=== PATIENT | male | born 1950 | race Caucasian/White ===

== ENCOUNTER 2016-08-19 08:51 | Emergency (ER) | payer MEDICARE, OTHER ==
--- NOTE | 2016-08-19 09:02 | EDM.PDOC ---
ED HPI GENERAL MEDICAL PROBLEM - General Chief Complaint: Abdominal Pain Stated Complaint: SOB STOMACH DISENDED Time Seen by Provider: 08/19/16 09:02 - History of Present Illness INITIAL COMMENTS - FREE TEXT/NARRATIVE: 66-year-old male presents emergency room with abdominal pain. This pain started last evening around 7:30 or 8:00 was associated with some distention nausea and vomiting. The patient has had some improvement in his distention But his discomfort is getting worse it does radiate a little bit into his chest. The patient ate a bunch of deer sausage last evening his symptoms started after this. However, the patient has had this deer sausage in the past without problems. Patient has not had any fevers or chills and prior to the onset of his abdominal symptoms was doing well. His pain does not going to his back. He has no prior history of coronary artery disease. However, he does have a history of hyperlipidemia. Abdomen Pain Score (Numeric/FACES): 10 - Related Data Allergies Allergy/AdvReac Type Severity Reaction Status Date / Time No Known Allergies Allergy Verified 08/19/16 09:03 Home Meds: Home Meds Allopurinol [Zyloprim] 300 mg PO BEDTIME 08/19/16 [History] Aspirin [Halfprin] 81 mg PO BEDTIME 08/19/16 [History] Citalopram Hydrobromide [Celexa] 20 mg PO BEDTIME 08/19/16 [History] Ondansetron [Zofran ODT] 4 mg PO Q4H PRN #10 tab.dis 08/19/16 [Rx] Simvastatin [Zocor] 40 mg PO BEDTIME 08/19/16 [History] ED ROS GENERAL - Review of Systems Review Of Systems: See Below Constitutional: Reports: no symptoms HEENT: Reports: No symptoms Respiratory: Reports: No Symptoms Cardiovascular: Reports: Chest pain (Minimal and this seems to worsen as his distention worsens) GI/Abdominal: Reports: Abdominal pain, Anorexia, Distension, Nausea, Vomiting. Denies: Constipation, Diarrhea : Reports: no symptoms Musculoskeletal: Reports: no symptoms Skin: Reports: no symptoms Neurological: Reports: No Symptoms ED EXAM, GENERAL - Physical Exam Exam: See Below Exam Limited By: No limitations General Appearance: alert, mild distress (From abdominal pain after his symptoms resolved he did much better.) Head: atraumatic, normocephalic Neck: normal inspection, supple, non-tender, full range of motion. No: lymphadenopathy (L), lymphadenopathy (R) Respiratory/Chest: lungs clear, normal breath sounds, no accessory muscle use Cardiovascular: regular rate, rhythm, no edema, no murmur GI/Abdominal: normal bowel sounds, other (Diffuse distention generalized discomfort worse in the upper quadrants). No: non tender, no distention Back Exam: normal inspection. No: CVA tenderness (L), CVA tenderness (R) Extremities: normal inspection, no pedal edema EKG INTERPRETATION EKG Date: 08/19/16 Rhythm: other (Mild tachycardia or sinus tachycardia) [place]: LAD-left axis deviation P-wave: present QRS: normal ST-T: other (Nonspecific nondiagnostic changes) QT: normal Comparison: NA - no prior EKG Course - Vital Signs Last Recorded V/S: Last Vital Signs Temp 35.6 C 08/19/16 08:57 Pulse 102 H 08/19/16 08:57 Resp 34 H 08/19/16 08:57 BP 140/104 H 08/19/16 08:57 Pulse Ox 100 08/19/16 08:57 - Orders/Labs/Meds Orders: Active Orders 24 hr Category Date Time Status EKG Documentation Completion [RC] STAT Care 08/19/16 09:16 Active Abdomen 2V AP Flat Upright [CR] Stat Exams 08/19/16 09:16 Taken Chest 2V [CR] Stat Exams 08/19/16 09:16 Taken Lactated Ringers [Ringers, Lactated] 1,000 ml Med 08/19/16 09:30 Active IV ASDIRECTED Sodium Chloride 0.9% [Normal Saline] 100 ml Med 08/19/16 11:30 Active IV ASDIRECTED Sodium Chloride 0.9% [Saline Flush] Med 08/19/16 11:29 Active 10 ml FLUSH ONETIME PRN Medication Orders Lactated Ringer's (Ringers, Lactated) 1,000 mls @ 125 mls/hr IV ASDIRECTED JIGAR Last Admin: 08/19/16 10:35 Dose: 125 mls/hr Sodium Chloride (Normal Saline) 100 mls @ 80 mls/hr IV ASDIRECTED JIGAR Last Admin: 08/19/16 11:48 Dose: 80 mls/hr Sodium Chloride (Saline Flush) 10 ml FLUSH ONETIME PRN PRN Reason: IV FLUSH Last Admin: 08/19/16 11:48 Dose: 10 ml Labs: Laboratory Tests 08/19/16 08/19/16 08/19/16 Range/Units 08:55 08:55 08:55 WBC 18.73 H (4.23-9.07) K/mm3 RBC 5.79 (4.63-6.08) M/mm3 Hgb 17.0 (13.7-17.5) gm/L Hct 50.2 (40.1-51.0) % MCV 86.7 (79.0-92.2) fl MCH 29.4 (25.7-32.2) pg MCHC 33.9 (32.2-35.5) g/dl RDW Std Deviation 40.4 (35.1-43.9) fL Plt Count 234 (163-337) K/mm3 MPV 11.9 (9.4-12.3) fl Neutrophils % (Manual) 87 H (40-60) % Band Neutrophils % 0 (0-10) % Lymphocytes % (Manual) 4 L (20-40) % Atypical Lymphs % 0 % Monocytes % (Manual) 8 (2-10) % Eosinophils % (Manual) 0 L (0.8-7.0) % Basophils % (Manual) 0 L (0.2-1.2) Myelocytes % 1 Platelet Estimate Adequate Plt Morphology Comment Normal RBC Morph Comment Normal PT 10.3 (8.0-13.0) SECONDS INR 0.95 APTT 25 (22-36) SECONDS Sodium 140 (136-145) mEq/L Potassium 4.4 (3.5-5.1) mEq/L Chloride 105 (98-107) mEq/L Carbon Dioxide 19 L (21-32) mEq/L Anion Gap 20.4 H (5-15) BUN 24 H (7-18) mg/dL Creatinine 1.3 (0.7-1.3) mg/dL Est Cr Clr Drug Dosing 58.73 mL/min Estimated GFR (MDRD) 55 (>60) mL/min BUN/Creatinine Ratio 18.5 H (14-18) Glucose 179 H (80-115) mg/dL Calcium 9.2 (8.5-10.1) mg/dL Total Bilirubin 0.8 (0.2-1.0) mg/dL AST 33 (15-37) U/L ALT 62 (16-63) U/L Alkaline Phosphatase 105 (46-116) U/L Troponin I < 0.017 (0.00-0.056) ng/mL Total Protein 7.5 (6.4-8.2) g/dl Albumin 4.0 (3.4-5.0) g/dl Globulin 3.5 gm/dL Albumin/Globulin Ratio 1.1 (1-2) Lipase 74 (73-393) U/L Urine Color (Yellow) Urine Appearance (Clear) Urine pH (5.0-8.0) Ur Specific [place] (1.005-1.030) Urine Protein (Negative) Urine Glucose (UA) (Negative) Urine Ketones (Negative) Urine Occult Blood (Negative) Urine Nitrite (Negative) Urine Bilirubin (Negative) Urine Urobilinogen (0.2-1.0) Ur Leukocyte Esterase (Negative) Urine RBC (0-5) /hpf Urine WBC (0-5) /hpf Urine WBC Clumps (NOT SEEN) /hpf Ur Epithelial Cells (0-5) /hpf Calcium Oxalate Crystal (NONE) Urine Bacteria (FEW) /hpf Hyaline Casts (0-5) /lpf Urine Mucus (FEW) /hpf Mycoplasma pneumon IgM (NEGATIVE) 08/19/16 08/19/16 Range/Units 08:55 09:05 WBC (4.23-9.07) K/mm3 RBC (4.63-6.08) M/mm3 Hgb (13.7-17.5) gm/L Hct (40.1-51.0) % MCV (79.0-92.2) fl MCH (25.7-32.2) pg MCHC (32.2-35.5) g/dl RDW Std Deviation (35.1-43.9) fL Plt Count (163-337) K/mm3 MPV (9.4-12.3) fl Neutrophils % (Manual) (40-60) % Band Neutrophils % (0-10) % Lymphocytes % (Manual) (20-40) % Atypical Lymphs % % Monocytes % (Manual) (2-10) % Eosinophils % (Manual) (0.8-7.0) % Basophils % (Manual) (0.2-1.2) Myelocytes % Platelet Estimate Plt Morphology Comment RBC Morph Comment PT (8.0-13.0) SECONDS INR APTT (22-36) SECONDS Sodium (136-145) mEq/L Potassium (3.5-5.1) mEq/L Chloride (98-107) mEq/L Carbon Dioxide (21-32) mEq/L Anion Gap (5-15) BUN (7-18) mg/dL Creatinine (0.7-1.3) mg/dL Est Cr Clr Drug Dosing mL/min Estimated GFR (MDRD) (>60) mL/min BUN/Creatinine Ratio (14-18) Glucose (80-115) mg/dL Calcium (8.5-10.1) mg/dL Total Bilirubin (0.2-1.0) mg/dL AST (15-37) U/L ALT (16-63) U/L Alkaline Phosphatase (46-116) U/L Troponin I (0.00-0.056) ng/mL Total Protein (6.4-8.2) g/dl Albumin (3.4-5.0) g/dl Globulin gm/dL Albumin/Globulin Ratio (1-2) Lipase (73-393) U/L Urine Color Yellow (Yellow) Urine Appearance Clear (Clear) Urine pH 5.5 (5.0-8.0) Ur Specific [place] > or = 1.030 (1.005-1.030) Urine Protein 1+ H (Negative) Urine Glucose (UA) Negative (Negative) Urine Ketones 1+ H (Negative) Urine Occult Blood 2+ H (Negative) Urine Nitrite Negative (Negative) Urine Bilirubin Negative (Negative) Urine Urobilinogen 0.2 (0.2-1.0) Ur Leukocyte Esterase Negative (Negative) Urine RBC 0-5 (0-5) /hpf Urine WBC 0-5 (0-5) /hpf Urine WBC Clumps Rare (NOT SEEN) /hpf Ur Epithelial Cells 0-5 (0-5) /hpf Calcium Oxalate Crystal Few H (NONE) Urine Bacteria Moderate H (FEW) /hpf Hyaline Casts 0-5 (0-5) /lpf Urine Mucus Many H (FEW) /hpf Mycoplasma pneumon IgM Negative (NEGATIVE) Meds: Medications Generic Name Dose Route Start Last Admin Trade Name Freq PRN Reason Stop Dose Admin Lactated Ringer's 1,000 mls @ 125 mls/hr 08/19/16 09:30 08/19/16 10:35 Ringers, Lactated IV 125 mls/hr ASDIRECTED JIGAR Administration Sodium Chloride 100 mls @ 80 mls/hr 08/19/16 11:30 08/19/16 11:48 Normal Saline IV 80 mls/hr ASDIRECTED JIGAR Administration Sodium Chloride 10 ml 08/19/16 11:29 08/19/16 11:48 Saline Flush FLUSH 10 ml ONETIME PRN Administration IV FLUSH Discontinued Medications Generic Name Dose Route Start Last Admin Trade Name Rolandoq PRN Reason Stop Dose Admin Fentanyl 50 mcg 08/19/16 09:19 08/19/16 09:37 Sublimaze IVPUSH 08/19/16 09:20 50 mcg ONETIME ONE Administration Lactated Ringer's 500 mls @ 500 mls/hr 08/19/16 09:19 08/19/16 09:35 Ringers, Lactated IV 08/19/16 10:18 500 mls/hr .BOLUS ONE Administration Iopamidol 100 ml 08/19/16 11:29 08/19/16 11:48 [id number] (76%) IVPUSH 08/19/16 11:30 100 ml ONETIME ONE Administration Ondansetron HCl 4 mg 08/19/16 09:19 08/19/16 09:36 Zofran IVPUSH 08/19/16 09:20 4 mg ONETIME ONE Administration - Re-Assessments/Exams Free Text/Narrative Re-Assessment/Exam: 08/19/16 09:41 Issue doing much better patient had a very large emesis over at radiology. Chest x-ray shows poor inspiration no definitive acute cardiopulmonary changes questionable infiltrate retrocardiac. This could be because of poor inspiration. Abdominal films are nondiagnostic minimal air within the colon or small bowel. Patient has old large emesis episode, 2 emesis bags lots of meat like debris. He feels much better after this. 08/19/16 13:00 CAT scan of the chest normal no acute changes interstitial basilar changes the to be fibrosis. CT of the abdomen and pelvis shows no acute changes she's got some nonobstructing kidney stones and over shoe kidney he's got multiple colonic diverticuli with no apparent inflammatory changes. Patient continues to do well he feels better not 100%. The patient agrees to return to the emergency room if not improving and certainly sooner if getting worse. Departure - Departure Time of Disposition: 13:05 Disposition: Home, Self-Care 01 Clinical Impression: Abdominal pain of unknown cause, Nausea & vomiting Prescriptions: Ondansetron [Zofran ODT] 4 mg PO Q4H PRN #10 tab.dis PRN Reason: Nausea/Vomiting Referrals: PCP,None [Primary Care Provider] - Forms: ED Department Discharge Additional Instructions: Return to emergency room with any questions or problems. Return in 12-24 hours if not improving. Return sooner if getting worse. Clear liquid diet for the next 24 hours then slowly advance as tolerated. He then started on Zofran, this is for nausea and vomiting use as needed. - My Orders Last 24 Hours: My Active Orders 08/19/16 09:16 EKG Documentation Completion [RC] STAT Abdomen 2V AP Flat Upright [CR] Stat Chest 2V [CR] Stat 08/19/16 09:30 Lactated Ringers [Ringers, Lactated] 1,000 ml IV ASDIRECTED 08/19/16 11:29 Sodium Chloride 0.9% [Saline Flush] 10 ml FLUSH ONETIME PRN 08/19/16 11:30 Sodium Chloride 0.9% [Normal Saline] 100 ml IV ASDIRECTED - Assessment/Plan Last 24 Hours: My Active Orders 08/19/16 09:16 EKG Documentation Completion [RC] STAT Abdomen 2V AP Flat Upright [CR] Stat Chest 2V [CR] Stat 08/19/16 09:30 Lactated Ringers [Ringers, Lactated] 1,000 ml IV ASDIRECTED 08/19/16 11:29 Sodium Chloride 0.9% [Saline Flush] 10 ml FLUSH ONETIME PRN 08/19/16 11:30 Sodium Chloride 0.9% [Normal Saline] 100 ml IV ASDIRECTED
[2016-08-19 09:03] VITALS: BP 140/104
[2016-08-19] MEDS ORDERED: fentaNYL 100 MCG/2 ML SDV IVPUSH ONE (09:19)
[2016-08-19] MEDS ORDERED: Ondansetron 4 MG/2 ML SDV IVPUSH ONE (09:19)
[2016-08-19] MEDS ORDERED: Lactated Ringers 500 ML IV ONE (09:19)
[2016-08-19] MEDS ORDERED: Lactated Ringers 1,000 ML IV SCH (09:30)
[2016-08-19] MEDS ORDERED: Iopamidol 755 Mg/ML 100 ML Bottle IVPUSH ONE (11:29)
[2016-08-19] MEDS ORDERED: Sodium Chloride 0.9% 10 ML Syringe FLUSH PRN (11:29)
[2016-08-19] MEDS ORDERED: Sodium Chloride 0.9% 100 ML IV SCH (11:30)
--- NOTE | 2016-08-19 12:23 | CT ---
CT abdomen and pelvis Technique: Multiple axial sections were obtained from above the dome of the diaphragm inferiorly through the pubic symphysis. Intravenous and oral contrast has been given. Delayed images were also obtained through the bladder. Comparison: No previous abdominal CT, previous abdominal surgery performed earlier on the same day. Findings: Visualized lung bases show nothing acute. Liver shows fatty infiltration. Spleen appears within normal limits. Adrenal glands show no nodule. Gallbladder shows no calcified gallstones. Aorta contains mild atherosclerotic calcification but has no aneurysmal dilatation. Horseshoe kidney is noted. Left side of the kidney shows an upper pole cyst measuring approximately 6.2 cm. Parapelvic cyst is also noted within the left kidney. Small cyst noted within the right side of the kidney within the lower pole measuring 2.5 cm. Additional smaller cortical cyst is noted within the right side of the kidney. 2 nonobstructing calculi are noted within the right kidney. Largest stone measures 9 mm. Very small nonobstructing calculus is noted within the left kidney measuring about 1-2 mm. No ureteral dilatation is seen. Delayed images shows contrast excretion within both distal ureters and within the bladder. Numerous diverticuli are seen within the sigmoid colon with lesser diverticuli seen throughout other portions of the colon. Small bowel shows scattered fluid which is felt to be incidental. Appendix is not seen. No free fluid or inflammatory change is identified. Bone window settings were reviewed which shows scattered degenerative spurring within the spine. Severe disc space narrowing is noted at L5-S1 with vacuum phenomena. 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 Impression: 1. Horseshoe kidney. Cysts within the kidney as described above. Nonobstructing calculi are seen on both sides of the kidney as described above. No ureteral dilatation or ureteral stone is seen. 2. Numerous colonic diverticuli with no inflammatory change seen to indicate diverticulitis. 3. Fatty infiltration within the liver and incidental findings as noted above. 4. No acute abnormality is identified on CT study of the abdomen and pelvis. Diagnostic code #2
--- NOTE | 2016-08-19 12:26 | CT ---
CT chest Technique: Multiple axial sections through the chest were obtained. Intravenous contrast was utilized. Study was performed as a pulmonary angiogram protocol. Comparison: No previous CT chest study, previous chest x-ray performed earlier on the same day is available. Findings: Pulmonary arteries are well-opacified. No filling defects are seen to indicate pulmonary embolism. Mediastinum and hilar regions show no adenopathy or mass. Small lymph nodes are noted within the right hilar region and mediastinum which are felt to be within normal limits. No pericardial thickening is seen. No significant coronary artery calcification is seen. Mild basilar interstitial change is noted most likely representing mild fibrosis. Incidental azygos lobe is present. Lungs otherwise are clear. No pleural effusions or pneumothorax is seen. Bone window settings were reviewed which shows no rib fracture. Scattered degenerative spurring is incidentally noted within the spine. Impression: 1. No findings of pulmonary embolism. 2. Mild basilar interstitial change most likely representing mild fibrosis. 3. Other incidental findings as noted above. Diagnostic code #2
--- NOTE | 2016-08-20 10:34 | CR ---
Abdomen: Supine and upright views of the abdomen were obtained. Several calcifications seen within the right kidney shown on subsequent CT abdomen and pelvis study to represent nonobstructing calculi. Bowel gas pattern appears normal. Several calcifications are seen within the right pelvis which are compatible with phleboliths. Bony structures are unremarkable for the patient's age. Impression: 1. Nonobstructing calculi within the kidneys. 2. Nothing acute seen on two-view abdominal x-ray. Diagnostic code #2
--- NOTE | 2016-08-20 10:34 | CR ---
Chest: Two views of the chest were obtained. Comparison: No previous study. Heart size is normal. Mild tortuosity of the thoracic aorta is seen. Azygos lobe is incidentally noted. Lungs are clear and no acute infiltrates. Bony structures appear within normal limits for the patient's age. Impression: 1. Incidental findings. Nothing acute is identified on two-view chest x-ray. Diagnostic code #2
== END 2016-08-19 13:37 | disposition home or self-care (01) ==
LOC: JD.ED 08:51
DX: R10.11 Right upper quadrant pain (principal); R10.12 Left upper quadrant pain; R11.2 Nausea with vomiting, unspecified; Z79.82 Long term (current) use of aspirin
CPT/HCPCS: 36415; 71020; 71275; 74020; 74177; 80053; 81001; 83690; 84484; 85025; 85610; 85730; 86738; 93005; 96361; 96374; 96375; 99285; J2405; J3010; J7030; J7050; J7120; Q9967; 99284

== ENCOUNTER 2023-03-04 20:56 | Emergency (ER) | payer MEDICARE, OTHER ==
[2023-03-04] MEDS ORDERED: Sodium Chloride 0.9% 10 ML Syringe FLUSH PRN (21:55)
[2023-03-04 22:22] LABS: BASOPHILS PERCENT AUTO 0.1 % (0.0-1.0); EOSINOPHILS PERCENT AUTO 0.2 % (0.0-6.0); HEMATOCRIT 43.2 % (42.0-52.0); HEMOGLOBIN 14.4 gm/dl (14.0-18.0); IMMATURE GRAN ABSOLUTE AUTO 0.06 K/mm3 (0.00-0.05); IMMATURE GRAN PERCENT AUTO 0.3 % (0.0-0.4); LYMPHOCYTES ABSOLUTE AUTO 0.9 K/mm3 (1.0-4.8); LYMPHOCYTES PERCENT AUTO 5.1 % (24.0-44.0); MEAN CORPUSCULAR HEMOGLOBIN 30.2 pg (28.0-32.0); MEAN CORPUSCULAR HGB CONC 33.3 g/dl (32.0-36.0); MEAN CORPUSCULAR VOLUME 90.6 fl (83.0-99.0); MEAN PLATELET VOLUME 12.1 fl (9.4-12.4); MONOCYTES ABSOLUTE AUTO 2.1 K/mm3 (0.0-0.8); MONOCYTES PERCENT AUTO 11.8 % (0.0-8.0); NEUTROPHILS ABSOLUTE AUTO 14.7 K/mm3 (1.8-7.7); NEUTROPHILS PERCENT AUTO 82.5 % (41.0-71.0); PLATELET COUNT,PLT 183 K/mm3 (150-400); RED BLOOD CELL COUNT 4.77 M/mm3 (4.52-5.90); WHITE BLOOD CELL COUNT,WBC 17.76 K/mm3 (3.9-11.3)
[2023-03-04 22:38] LABS: D-DIMER QUANTITATIVE 0.49 mg/L (0.19-0.50); INR 1.02; PROTHROMBIN TIME 10.9 SECONDS (9.7-12.0)
[2023-03-04 22:56] LABS: A/G RATIO 1.3 (1-2); ALANINE AMINOTRANSFERASE,ALT 43 U/L (16-63); ALKALINE PHOSPHATASE 87 U/L (46-116); ANION GAP 17.9 (5-15); ASPARTATE AMNIOTRANSFERASE,AST 25 U/L (15-37); BILIRUBIN TOTAL 0.4 mg/dL (0.2-1.0); BLOOD UREA NITROGEN,BUN 21 mg/dL (7-18); CALCIUM 9.7 mg/dL (8.5-10.1); CARBON DIOXIDE,CO2 24 mEq/L (21-32); CHLORIDE,CL 104 mEq/L (98-107); CREATININE 1.4 mg/dL (0.7-1.3); ESTIMATED GFR 53 mL/min (>60); GLUCOSE RANDOM 125 mg/dL (70-99); MAGNESIUM 1.3 mg/dL (1.8-2.4); POTASSIUM,K 3.9 mEq/L (3.5-5.1); PROTEIN TOTAL,TP 7.2 g/dl (6.4-8.2); SODIUM,NA 142 mEq/L (136-145)
[2023-03-04 22:58] LABS: TROPONIN I HIGH SENSITIVITY < 4 pg/mL (<=76)
[2023-03-05 01:00] LABS: BASOPHILS PERCENT AUTO 0.1 % (0.0-1.0); EOSINOPHILS PERCENT AUTO 0.1 % (0.0-6.0); HEMATOCRIT 40.7 % (42.0-52.0); HEMOGLOBIN 13.5 gm/dl (14.0-18.0); IMMATURE GRAN ABSOLUTE AUTO 0.05 K/mm3 (0.00-0.05); IMMATURE GRAN PERCENT AUTO 0.3 % (0.0-0.4); LYMPHOCYTES ABSOLUTE AUTO 1.3 K/mm3 (1.0-4.8); LYMPHOCYTES PERCENT AUTO 9.4 % (24.0-44.0); MEAN CORPUSCULAR HEMOGLOBIN 30.3 pg (28.0-32.0); MEAN CORPUSCULAR HGB CONC 33.2 g/dl (32.0-36.0); MEAN CORPUSCULAR VOLUME 91.3 fl (83.0-99.0); MEAN PLATELET VOLUME 12.3 fl (9.4-12.4); MONOCYTES ABSOLUTE AUTO 1.1 K/mm3 (0.0-0.8); NEUTROPHILS ABSOLUTE AUTO 11.7 K/mm3 (1.8-7.7); NEUTROPHILS PERCENT AUTO 82.1 % (41.0-71.0); PLATELET COUNT,PLT 169 K/mm3 (150-400); RED BLOOD CELL COUNT 4.46 M/mm3 (4.52-5.90); WHITE BLOOD CELL COUNT,WBC 14.29 K/mm3 (3.9-11.3)
[2023-03-05 02:46] VITALS: BP 145/96; PULSE 78
== END 2023-03-05 01:50 | disposition home or self-care (01) ==
LOC: JD.ED 20:56
DX: R10.9 Unspecified abdominal pain (principal); E78.00 Pure hypercholesterolemia, unspecified; Z90.49 Acquired absence of other specified parts of digestive tract; Z87.891 Personal history of nicotine dependence; Z79.82 Long term (current) use of aspirin; Z79.899 Other long term (current) drug therapy; Z91.018 Allergy to other foods
CPT/HCPCS: 36415; 71045; 71045-26; 74019; 74019-26; 80053; 83735; 84484; 85025; 85379; 85610; 93005; 99284

== ENCOUNTER 2023-12-22 16:38 | Inpatient (IN) | payer MEDICARE, OTHER ==
[2023-12-22 17:13] LABS: BASOPHILS PERCENT AUTO 0.2 % (0.0-1.0); EOSINOPHILS ABSOLUTE AUTO 0.1 K/mm3 (0.0-0.4); EOSINOPHILS PERCENT AUTO 0.3 % (0.0-6.0); HEMATOCRIT 49.3 % (42.0-52.0); HEMOGLOBIN 15.9 gm/dl (14.0-18.0); IMMATURE GRAN ABSOLUTE AUTO 0.09 K/mm3 (0.00-0.05); IMMATURE GRAN PERCENT AUTO 0.4 % (0.0-0.4); LYMPHOCYTES ABSOLUTE AUTO 3.8 K/mm3 (1.0-4.8); LYMPHOCYTES PERCENT AUTO 17.9 % (24.0-44.0); MEAN CORPUSCULAR HEMOGLOBIN 29.2 pg (28.0-32.0); MEAN CORPUSCULAR HGB CONC 32.3 g/dl (32.0-36.0); MEAN CORPUSCULAR VOLUME 90.5 fl (83.0-99.0); MONOCYTES ABSOLUTE AUTO 2.5 K/mm3 (0.0-0.8); MONOCYTES PERCENT AUTO 11.6 % (0.0-8.0); NEUTROPHILS ABSOLUTE AUTO 14.7 K/mm3 (1.8-7.7); NEUTROPHILS PERCENT AUTO 69.6 % (41.0-71.0); PLATELET COUNT,PLT 243 K/mm3 (150-400); RED BLOOD CELL COUNT 5.45 M/mm3 (4.52-5.90)
[2023-12-22] MEDS: Lactated Ringers 1,000 ML IV SCH ×3 (17:27→22:29)
[2023-12-22] MEDS: Metoclopramide 10 MG/2 ML SDV IVPUSH ONE (17:27)
[2023-12-22] MEDS: HYDROmorphone 0.5 MG/0.5 ML Syringe IVPUSH ONE (17:28)
[2023-12-22 17:31] LABS: A/G RATIO 1.5 (1-2); ALANINE AMINOTRANSFERASE,ALT 63 U/L (16-63); ALBUMIN 4.9 g/dl (3.4-5.0); ALKALINE PHOSPHATASE 115 U/L (46-116); ANION GAP 17.8 (5-15); ASPARTATE AMNIOTRANSFERASE,AST 32 U/L (15-37); BILIRUBIN TOTAL 0.8 mg/dL (0.2-1.0); BLOOD UREA NITROGEN,BUN 25 mg/dL (7-18); BUN/CREATININE RATIO 16.7 (14-18); C-REACTIVE PROTEIN 0.06 mg/dL (<0.30); CALCIUM 10.6 mg/dL (8.5-10.1); CARBON DIOXIDE,CO2 23 mEq/L (21-32); CHLORIDE,CL 106 mEq/L (98-107); CREATININE 1.5 mg/dL (0.7-1.3); EST CRCL DRUG DOSING (CG) 44.61 mL/min; ESTIMATED GFR 49 mL/min (>60); GLUCOSE RANDOM 201 mg/dL (70-99); LIPASE 33 U/L (16-77); MAGNESIUM 1.3 mg/dL (1.8-2.4); POTASSIUM,K 4.8 mEq/L (3.5-5.1); PROTEIN TOTAL,TP 8.2 g/dl (6.4-8.2); SODIUM,NA 142 mEq/L (136-145)
[2023-12-22 17:32] LABS: LACTIC ACID 4.9 mmol/L (0.4-2.0)
[2023-12-22 17:33] LABS: TROPONIN I HIGH SENSITIVITY < 4 pg/mL (<=76)
[2023-12-22 18:04] LABS: SLIDE REVIEW ABNORMAL SMEAR
[2023-12-22 18:39] LABS: APPEARANCE,URINE CLEAR (Clear); BILIRUBIN,URINE 1+ (Negative); COLOR,URINE YELLOW (Yellow); GLUCOSE,URINE NEGATIVE (Negative); KETONES,URINE 1+ (Negative); LEUKOCYTE ESTERASE,URINE NEGATIVE (Negative); NITRITE,URINE NEGATIVE (Negative); OCCULT BLOOD,URINE NEGATIVE (Negative); PH,URINE 5.5 (5.0-8.0); PROTEIN,URINE 1+ (Negative); UROBILINOGEN,URINE 0.2 (0.2-1.0)
[2023-12-22] MEDS: Magnesium Sulfate/Water 4 GM in Premix Bag 1 BAG IV ONE ×2 (18:44→20:58)
[2023-12-22 18:58] LABS: RBC,URINE 0-5 /hpf (0-5); WBC,URINE 0-5 /hpf (0-5)
[2023-12-22 18:59] LABS: BACTERIA,URINE FEW /hpf (FEW); CALCIUM OXALATE CRYSTALS,URINE FEW; EPITHELIAL CELLS,URINE 0-5 /hpf (0-5); HYALINE CASTS,URINE 30-40 /lpf (0-5); MUCUS,URINE MODERATE /hpf (FEW)
[2023-12-22 20:00] LABS: BASOPHILS PERCENT AUTO 0.1 % (0.0-1.0); EOSINOPHILS PERCENT AUTO 0.1 % (0.0-6.0); HEMATOCRIT 45.4 % (42.0-52.0); HEMOGLOBIN 14.8 gm/dl (14.0-18.0); IMMATURE GRAN ABSOLUTE AUTO 0.06 K/mm3 (0.00-0.05); IMMATURE GRAN PERCENT AUTO 0.4 % (0.0-0.4); LYMPHOCYTES ABSOLUTE AUTO 1.6 K/mm3 (1.0-4.8); LYMPHOCYTES PERCENT AUTO 10.6 % (24.0-44.0); MEAN CORPUSCULAR HEMOGLOBIN 29.5 pg (28.0-32.0); MEAN CORPUSCULAR HGB CONC 32.6 g/dl (32.0-36.0); MEAN CORPUSCULAR VOLUME 90.4 fl (83.0-99.0); MEAN PLATELET VOLUME 12.4 fl (9.4-12.4); MONOCYTES ABSOLUTE AUTO 1.4 K/mm3 (0.0-0.8); MONOCYTES PERCENT AUTO 9.4 % (0.0-8.0); NEUTROPHILS ABSOLUTE AUTO 11.6 K/mm3 (1.8-7.7); NEUTROPHILS PERCENT AUTO 79.4 % (41.0-71.0); PLATELET COUNT,PLT 195 K/mm3 (150-400); RED BLOOD CELL COUNT 5.02 M/mm3 (4.52-5.90); WHITE BLOOD CELL COUNT,WBC 14.65 K/mm3 (3.9-11.3)
[2023-12-22 20:21] LABS: A/G RATIO 1.4 (1-2); ALBUMIN 4.3 g/dl (3.4-5.0); ANION GAP 14.3 (5-15); BILIRUBIN TOTAL 0.6 mg/dL (0.2-1.0); BUN/CREATININE RATIO 17.1 (14-18); CREATININE 1.4 mg/dL (0.7-1.3); EST CRCL DRUG DOSING (CG) 47.8 mL/min; POTASSIUM,K 4.3 mEq/L (3.5-5.1); PROTEIN TOTAL,TP 7.3 g/dl (6.4-8.2)
[2023-12-23] MEDS: Ondansetron 4 MG/2 ML SDV IVPUSH ONE (00:25)
[2023-12-23] MEDS ORDERED: Ondansetron 4 MG/2 ML SDV IV PRN (07:25)
[2023-12-23] MEDS ORDERED: Levofloxacin/Dextrose 5%-Water 750 MG in Premix Bag 1 BAG IV SCH (08:00)
[2023-12-23] MEDS: cefTRIAXone 1 GM in Sodium Chloride 0.9% 100 ML IV SCH (08:26)
[2023-12-23] MEDS: Gabapentin 300 MG Cap PO SCH (08:28)
[2023-12-23] MEDS: Enoxaparin 40 MG/0.4 ML Syringe SUBCUT SCH (08:28)
[2023-12-23] MEDS: Omeprazole 20 MG Cap.CR PO SCH (08:28)
[2023-12-23] MEDS: Azithromycin 500 MG in Sodium Chloride 0.9% 250 ML IV SCH (08:28)
[2023-12-23] MEDS: Lactated Ringers 1,000 ML IV SCH ×2 (08:35→15:09)
[2023-12-23] MEDS: Acetaminophen 325 MG Tab PO PRN (08:37)
[2023-12-23] MEDS: Vancomycin 125 MG Cap PO SCH (18:42)
[2023-12-23] MEDS: Aspirin 81 MG Tab.EC PO SCH (21:17)
[2023-12-23] MEDS: atorvaSTATin 20 MG Tab PO SCH (21:17)
[2023-12-24 05:08] LABS: EOSINOPHILS ABSOLUTE AUTO 0.2 K/mm3 (0.0-0.4); EOSINOPHILS PERCENT AUTO 2.5 % (0.0-6.0); HEMATOCRIT 36.9 % (42.0-52.0); IMMATURE GRAN ABSOLUTE AUTO 0.02 K/mm3 (0.00-0.05); IMMATURE GRAN PERCENT AUTO 0.3 % (0.0-0.4); LYMPHOCYTES ABSOLUTE AUTO 1.8 K/mm3 (1.0-4.8); LYMPHOCYTES PERCENT AUTO 28.3 % (24.0-44.0); MEAN CORPUSCULAR HEMOGLOBIN 29.3 pg (28.0-32.0); MEAN CORPUSCULAR HGB CONC 32.5 g/dl (32.0-36.0); MEAN CORPUSCULAR VOLUME 90.2 fl (83.0-99.0); MEAN PLATELET VOLUME 12.5 fl (9.4-12.4); MONOCYTES PERCENT AUTO 16.5 % (0.0-8.0); NEUTROPHILS ABSOLUTE AUTO 3.3 K/mm3 (1.8-7.7); NEUTROPHILS PERCENT AUTO 52.4 % (41.0-71.0); PLATELET COUNT,PLT 140 K/mm3 (150-400); RED BLOOD CELL COUNT 4.09 M/mm3 (4.52-5.90); WHITE BLOOD CELL COUNT,WBC 6.32 K/mm3 (3.9-11.3)
[2023-12-24 05:38] LABS: A/G RATIO 1.2 (1-2); ALBUMIN 3.1 g/dl (3.4-5.0); ANION GAP 12.7 (5-15); BILIRUBIN TOTAL 0.6 mg/dL (0.2-1.0); CALCIUM 8.1 mg/dL (8.5-10.1); EST CRCL DRUG DOSING (CG) 69.03 mL/min; POTASSIUM,K 3.7 mEq/L (3.5-5.1); PROTEIN TOTAL,TP 5.6 g/dl (6.4-8.2)
[2023-12-25 04:53] LABS: BASOPHILS PERCENT AUTO 0.1 % (0.0-1.0); EOSINOPHILS ABSOLUTE AUTO 0.1 K/mm3 (0.0-0.4); EOSINOPHILS PERCENT AUTO 1.8 % (0.0-6.0); HEMATOCRIT 35.6 % (42.0-52.0); HEMOGLOBIN 11.7 gm/dl (14.0-18.0); IMMATURE GRAN ABSOLUTE AUTO 0.02 K/mm3 (0.00-0.05); IMMATURE GRAN PERCENT AUTO 0.3 % (0.0-0.4); LYMPHOCYTES ABSOLUTE AUTO 2.1 K/mm3 (1.0-4.8); LYMPHOCYTES PERCENT AUTO 29.3 % (24.0-44.0); MEAN CORPUSCULAR HEMOGLOBIN 29.3 pg (28.0-32.0); MEAN CORPUSCULAR HGB CONC 32.9 g/dl (32.0-36.0); MEAN PLATELET VOLUME 12.2 fl (9.4-12.4); MONOCYTES ABSOLUTE AUTO 0.9 K/mm3 (0.0-0.8); MONOCYTES PERCENT AUTO 13.2 % (0.0-8.0); NEUTROPHILS ABSOLUTE AUTO 3.9 K/mm3 (1.8-7.7); NEUTROPHILS PERCENT AUTO 55.3 % (41.0-71.0); PLATELET COUNT,PLT 138 K/mm3 (150-400); WHITE BLOOD CELL COUNT,WBC 7.06 K/mm3 (3.9-11.3)
[2023-12-25 05:31] LABS: A/G RATIO 1.2 (1-2); ALBUMIN 3.1 g/dl (3.4-5.0); ANION GAP 14.5 (5-15); BILIRUBIN TOTAL 0.5 mg/dL (0.2-1.0); BUN/CREATININE RATIO 7.8 (14-18); CALCIUM 8.2 mg/dL (8.5-10.1); CREATININE 0.9 mg/dL (0.7-1.3); EST CRCL DRUG DOSING (CG) 76.69 mL/min; POTASSIUM,K 3.5 mEq/L (3.5-5.1); PROTEIN TOTAL,TP 5.7 g/dl (6.4-8.2)
[2023-12-25 14:50] VITALS: PULSE 63
[2023-12-25] MEDS: Acetaminophen 650 MG Supp RECTAL ONE (14:59)
[2023-12-25] MEDS: Potassium Chloride 20 MEQ Tab.ER PO ONE (15:01)
[2023-12-25 18:19] VITALS: BP 143/97
== END 2023-12-25 18:37 | disposition home or self-care (01) | DRG 872 ==
LOC: JD.ED 16:38 → OBSVTOIN 12-23 06:19 → JD.MS 12-23 06:19
PROVIDERS: ADMIT Family Medicine; ATTEND Student in an Organized Health Care Education/Training Program
DX: A41.89 Other specified sepsis (principal); N17.9 Acute kidney failure, unspecified; E87.20 Acidosis, unspecified; A04.72 Enterocolitis due to Clostridium difficile, not specified as recurrent; R19.7 Diarrhea, unspecified; R65.20 Severe sepsis without septic shock; A08.4 Viral intestinal infection, unspecified; H91.90 Unspecified hearing loss, unspecified ear; H54.7 Unspecified visual loss; E78.00 Pure hypercholesterolemia, unspecified; Z79.899 Other long term (current) drug therapy; K21.9 Gastro-esophageal reflux disease without esophagitis; M19.90 Unspecified osteoarthritis, unspecified site; M06.9 Rheumatoid arthritis, unspecified; F32.A Depression, unspecified; E86.0 Dehydration; E83.42 Hypomagnesemia; R25.2 Cramp and spasm; M10.9 Gout, unspecified; E11.9 Type 2 diabetes mellitus without complications; Z79.82 Long term (current) use of aspirin; Z79.84 Long term (current) use of oral hypoglycemic drugs; Z91.018 Allergy to other foods; Z87.81 Personal history of (healed) traumatic fracture; Z98.41 Cataract extraction status, right eye; Z90.89 Acquired absence of other organs; Z90.49 Acquired absence of other specified parts of digestive tract; Z87.891 Personal history of nicotine dependence
CPT/HCPCS: 36415 ×2; 71045; 80053 ×2; 80307; 81001; 82550; 83036; 83605 ×3; 83690; 83735 ×2; 83880; 84484; 85025 ×2; 86140; 93005; 96361; 96365; 96366; 96375 ×2; 99285; J1170; J2405; J2765; J3475 ×2; J7120 ×4; 87040; 87045; 87046; 87324; 87493; 87899; 93010; 97161-GP; 99222; 99232; 99239; 99284; A9270-GY; J0456; J0696; J1650; J3490; J7050